=== PATIENT | male | born 1940 | race Caucasian/White ===

== ENCOUNTER 2022-04-21 19:24 | Emergency (ER) | payer OTHER, MEDICARE ==
[~2022-04-21] VITALS: Ht 177.8 cm; Wt 127.3 kg
[2022-04-21] MEDS ORDERED: LIDOcaine 2% 10ml TOPICAL JELLY (Urojet) MM ONE ×2 (20:25)
--- NOTE | 2022-04-21 21:15 | NUR ---
Unsuccessful getting the coude in. Dr Nelson summoned and that attempt unsuccessful.
--- NOTE | 2022-04-21 21:30 | NUR ---
Dr. Brar at bedside requesting patient get Morphine 5mg and Zofran 4mg IV now for procedure.
[2022-04-21] MEDS ORDERED: morphine 10mg/ml inj. IV ONE (21:40)
[2022-04-21] MEDS ORDERED: ondansetron/PF 4mg/2ml inj IV ONE (21:40)
[2022-04-21 22:59] LABS: CLARITY,URINE SLIGHTLY CLOUDY (Clear); GLUCOSE, URINE NEGATIVE (Neg); KETONES,URINE NEGATIVE (Neg); LEUKOCYTE ESTERASE ,URINE NEGATIVE (Neg); NITRITES, URINE NEGATIVE (Neg); OCCULT BLOOD,URINE LARGE (Neg); PH,URINE 7.5 (4.8-8.0); PROTEIN,URINE TRACE mg/dl (Neg); UROBILINOGEN,URINE 0.2 E.U/dL (0.2-1.0)
[2022-04-21 23:11] LABS: COLOR,URINE PINK (Yellow); UA COLLECTION TYPE FOLEY CATH
[2022-04-21 23:12] LABS: RBC,URINE 50-100 /HPF (0-2)
[2022-04-21 23:13] LABS: BACTERIA,URINE NONE SEEN /HPF (Neg); SQUAMOUS EPITHELIAL CELL,UR FEW /LPF (FEW); WBC,URINE 0-4 /HPF (0-4)
[2022-04-22] MEDS ORDERED: FLO0.4C PO (00:11)
[2022-04-22 00:20] VITALS: BP 160/78
== END 2022-04-22 00:44 | disposition home or self-care (01) ==
LOC: ER 19:24
DX: R33.9 Retention of urine, unspecified (principal)
CPT/HCPCS: 51702; 81001; 96374; 99284; J2274